=== PATIENT | female | born 1970 | race Caucasian/White ===

== ENCOUNTER → 2024-09-15 09:52 | Outpatient (REF) | payer BC, SELFPAY | LOC: WDC 09:52 | PROVIDERS: ATTENDING PHYSICIAN Obstetrics & Gynecology Gynecology | DX: N63.10 Unspecified lump in the right breast, unspecified quadrant (principal); N63.31 Unspecified lump in axillary tail of the right breast | CPT/HCPCS: 76642; 77062; 77066 ==